=== PATIENT | male | born 1950 | race Caucasian/White ===

== ENCOUNTER → 2021-06-08 | Outpatient (CLI) | payer MEDICARE, BC | LOC: RAD 10:55 | PROVIDERS: ATTEND Family Medicine | DX: I10 Essential (primary) hypertension (principal) | CPT/HCPCS: 93306 ==

== ENCOUNTER 2021-06-23 06:37 | Observation (INO) | payer MEDICARE, BC ==
[2021-06-22 11:05] LABS: BASOPHILS % 0.4 % (0.0-1.0); EOSINOPHILS % 0.6 % (0.0-6.0); HEMATOCRIT 43.8 % (38.2-49.6); HEMOGLOBIN 14.1 g/dL (14.0-18.0); LYMPHOCYTES # (AUTO) 1.4 (1.0-3.2); MEAN CORPUSCULAR HEMOGLOBIN 27.5 pg (28-32); MEAN CORPUSCULAR HGB CONC 32.2 g/dL (31-35); MEAN CORPUSCULAR VOLUME 85.5 fL (81-99); MONOCYTES # (AUTO) 0.6 (0.2-0.8); MONOCYTES % 8.1 % (4.4-11.3); NEUTROPHILS # (AUTO) 4.8 (2.1-6.9); NEUTROPHILS % 70.5 % (38.7-80.0); RED BLOOD COUNT 5.12 x10e6/uL (4.3-5.7); RED CELL DISTRIBUTION WIDTH 14.6 % (11.7-14.4)
[2021-06-22 11:13] LABS: INR 1.09; PROTHROMBIN TIME 15.1 seconds (11.9-14.5)
[2021-06-22 11:14] LABS: PARTIAL THROMBOPLASTIN TIME 31.7 seconds (23.8-35.5)
[2021-06-22 11:17] LABS: ANION GAP 15.1 mmol/L (8-16); CREATININE, SERUM 1.18 mg/dL (0.72-1.25); POTASSIUM 5.1 mmol/L (3.5-5.1)
[2021-06-22 11:29] LABS: PLATELET COUNT 86 x10e3/uL (140-360)
[2021-06-22 11:30] LABS: PLATELET ESTIMATE MODERATELY DECREASED; PLATELET MORPHOLOGY COMMENT NORMAL
[~2021-06-23] VITALS: Ht 190.5 cm; Wt 101.6 kg
[~2021-06-23 06:37] MED LIST: ALTOPREV40 MG PO; ASPIRIN81 MG PO; CRANBERRY200 MG PO; ETODOLAC400 MG PO; FLOMAX0.4 MG PO; GABAPENTIN100 MG PO; JANUMET 50-1,01 EACH PO; MULTI-VITAMIN1 EACH PO; PANTOPRAZOLE SO40 MG PO; SYNTHROID125 MCG PO; TEMAZEPAM15 MG PO; TRAZODONE HCL50 MG PO; ULTRAM 50MG50 MG PO; URSODIOL300 MG PO; VITAMIN B 12 PO; VITAMIN B COMP1 EACH PO; ZESTRIL10 MG PO; [UNRECOGNIZED DRUG - OTHER] PO
[2021-06-23] MEDS ORDERED: Vancomycin IV 1 GM VIAL ONE (06:47)
[2021-06-23] MEDS ORDERED: THROMBIN FOR SOLN 5,000 UNIT VIAL ONE (06:47)
[2021-06-23] MEDS ORDERED: LIDOCAINE 1% W/EPINEPHRINE 20 ML VIAL ONE (06:47)
[2021-06-23 07:25] LABS: BASOPHILS # (AUTO) 0.1 (0.0-0.1); BASOPHILS % 0.8 % (0.0-1.0); EOSINOPHILS # (AUTO) 0.1 (0.0-0.4); HEMATOCRIT 41.5 % (38.2-49.6); HEMOGLOBIN 13.5 g/dL (14.0-18.0); LYMPHOCYTES # (AUTO) 1.8 (1.0-3.2); LYMPHOCYTES % 24.2 % (18.0-39.1); MEAN CORPUSCULAR HEMOGLOBIN 27.7 pg (28-32); MEAN CORPUSCULAR HGB CONC 32.5 g/dL (31-35); MEAN CORPUSCULAR VOLUME 85.2 fL (81-99); MONOCYTES # (AUTO) 0.6 (0.2-0.8); MONOCYTES % 8.6 % (4.4-11.3); NEUTROPHILS # (AUTO) 4.8 (2.1-6.9); PLATELET COUNT 90 x10e3/uL (140-360); RED BLOOD COUNT 4.87 x10e6/uL (4.3-5.7)
[2021-06-23] MEDS ORDERED: SODIUM CHLORIDE 0.9% 250ML 250 ML ONE (07:48)
[2021-06-23] MEDS ORDERED: HYDROCODON-ACE1 EA12 PO (09:57)
[2021-06-23] MEDS ORDERED: ACETAMINOPHEN 325 MG TAB PO PRN (10:00)
[2021-06-23] MEDS ORDERED: MORPHINE SULFATE 5 MG/ML VIAL IM PRN (10:00)
[2021-06-23] MEDS ORDERED: CARISOPRODOL 350 MG TAB PO PRN (10:00)
[2021-06-23] MEDS ORDERED: TRAMADOL HCL 50 MG TAB PO SCH (10:00)
[2021-06-23] MEDS ORDERED: HYDROMORPHONE 2MG/ML 2 MG/ML ML IV PRN (10:00)
[2021-06-23] MEDS ORDERED: PROMETHAZINE HCL (IM) 25 MG/ML VIAL IM PRN (10:00)
[2021-06-23] MEDS ORDERED: MAGNESIUM/ALUMINUM/SIMETHICONE 30 ML UDC PO PRN (10:00)
[2021-06-23] MEDS ORDERED: OXYCODONE/ACETAMINOPHEN 5-325 1 EACH TABLET PO PRN (10:00)
[2021-06-23] MEDS ORDERED: ONDANSETRON HCL INJ 2MG/ML 2ML 2 MG/ML VIAL IV PRN (10:00)
[2021-06-23] MEDS ORDERED: FENTANYL CITRATE/PF 100MCG/2 ML INJ ONE ×2 (10:33→12:48)
[2021-06-23 11:09] VITALS: BP 123/57
[2021-06-23] MEDS: IBUPROFEN 400 MG TAB PO SCH ×2 (11:47→17:33)
[2021-06-23] MEDS: LACTATED RINGER'S 1,000 ML IV SCH ×2 (11:47→18:20)
[2021-06-23 12:00] VITALS: BP 123/57
[2021-06-23] MEDS ORDERED: ONDANSETRON HCL INJ 2MG/ML 2ML 2 MG/ML VIAL ONE (12:20)
[2021-06-23] MEDS ORDERED: SEVOFLURANE INHAL SOLN 250 ML PEN BTL ONE (12:20)
[2021-06-23] MEDS ORDERED: POVIDONE IODINE 0.05% 0.05 % ML PO ONE (12:20)
[2021-06-23] MEDS ORDERED: DEXAMETHASONE SOD PHOS INJ 4 MG/ML SDV ONE (12:20)
[2021-06-23] MEDS ORDERED: LIDOCAINE HCL 2% LOCAL INJ 5 ML SDV VIAL INJ ONE (12:20)
[2021-06-23] MEDS ORDERED: PROPOFOL IV EMULSION 10 MG/ML 20 ML VIAL ONE (12:20)
[2021-06-23] MEDS ORDERED: ROCURONIUM BROMIDE 10 MG/ML 5ML VIAL IV ONE (12:20)
[2021-06-23] MEDS ORDERED: MIDAZOLAM HCL 2 MG/2 ML VIAL ONE (12:48)
[2021-06-23] MEDS: GABAPENTIN 100 MG CAP PO SCH ×2 (15:00→21:57)
[2021-06-23 16:00] VITALS: BP 99/64
[2021-06-23] MEDS ORDERED: URSODIOL 300 MG CAP PO SCH (17:00)
[2021-06-23] MEDS ORDERED: ETODOLAC 400 MG PO SCH (17:00)
[2021-06-23] MEDS ORDERED: NON-FORMULARY MEDICATION (Sitagliptin Phos/Metformin Hcl (Janumet 50-1,000 Mg Tablet) 1 TA PO SCH (17:00)
[2021-06-23] MEDS: Cefazolin 1 GM in SODIUM CHLORIDE 0.9% 50ML 50 ML IV SCH (17:28)
[2021-06-23] MEDS: METFORMIN HCL 500 MG TAB PO SCH (17:30)
[2021-06-23] MEDS: SITAGLIPTIN 100 MG TAB PO SCH (17:33)
[2021-06-23 20:00] VITALS: BP 115/68
[2021-06-23] MEDS ORDERED: CEPACOL SORE THROAT LOZENGES PO PRN (20:00)
[2021-06-23] MEDS ORDERED: TEMAZEPAM 15 MG CAP PO SCH (21:00)
[2021-06-23] MEDS ORDERED: NON-FORMULARY MEDICATION (Lovastatin (Altoprev) 40 MG) PO SCH (21:00)
[2021-06-23] MEDS ORDERED: SIMVASTATIN 20 MG TAB PO SCH (21:00)
[2021-06-23] MEDS ORDERED: TRAZODONE HCL 50 MG TAB PO SCH (21:00)
[2021-06-23] MEDS ORDERED: ZOLPIDEM TARTRATE 5 MG TAB PO PRN (21:00)
[2021-06-23] MEDS: URSODIOL 300 MG CAP PO SCH (21:57)
[2021-06-23] MEDS: CEPACOL SORE THROAT LOZENGES PO PRN (21:57)
[2021-06-24] VITALS: BP 109/59
[2021-06-24] MEDS: Cefazolin 1 GM in SODIUM CHLORIDE 0.9% 50ML 50 ML IV SCH ×2 (01:12→08:56)
[2021-06-24] MEDS: LACTATED RINGER'S 1,000 ML IV SCH (02:40)
[2021-06-24 04:00] VITALS: BP 114/60
[2021-06-24] MEDS: CEPACOL SORE THROAT LOZENGES PO PRN (05:41)
[2021-06-24] MEDS ORDERED: LEVOTHYROXINE SODIUM 125 MCG TAB PO SCH (06:00)
[2021-06-24 07:58] VITALS: BP 118/62
[2021-06-24 08:05] VITALS: BP 112/86
[2021-06-24] MEDS: SITAGLIPTIN 100 MG TAB PO SCH (08:55)
[2021-06-24] MEDS: METFORMIN HCL 500 MG TAB PO SCH (08:55)
[2021-06-24] MEDS: IBUPROFEN 400 MG TAB PO SCH (08:56)
[2021-06-24] MEDS: URSODIOL 300 MG CAP PO SCH (08:56)
[2021-06-24] MEDS: GABAPENTIN 100 MG CAP PO SCH (08:56)
[2021-06-24] MEDS ORDERED: LISINOPRIL 20 MG TAB PO SCH (09:00)
[2021-06-24] MEDS ORDERED: MULTIVITAMINS/MINERALS TAB PO SCH (09:00)
[2021-06-24] MEDS ORDERED: PANTOPRAZOLE SOD 40 MG TABEC PO SCH (09:00)
[2021-06-24] MEDS ORDERED: TAMSULOSIN HCL 0.4 MG CAP PO SCH (09:00)
== END 2021-06-24 10:31 | disposition home or self-care (01) ==
LOC: OR 06:37 → PACU V 10:24 → MED/SURG 10:51
PROVIDERS: ADMIT Neurological Surgery; ATTEND Neurological Surgery
DX: M51.16 Intervertebral disc disorders with radiculopathy, lumbar region (principal); I10 Essential (primary) hypertension; E78.5 Hyperlipidemia, unspecified; E03.9 Hypothyroidism, unspecified; M17.11 Unilateral primary osteoarthritis, right knee; G47.33 Obstructive sleep apnea (adult) (pediatric); Z20.822 Contact with and (suspected) exposure to COVID-19
CPT/HCPCS: 36415 ×3; 63047; 71046; 72020; 80048; 82948 ×2; 85025 ×2; 85610; 85730; 86850; 86900; 88304; 88311; 93005; 97161; 97530; G0378 ×2; J0690 ×2; J1100; J2001; J2250; J2405; J2704; J3010; J3370; J7050; J7121; P9034; S0164; U0002

== ENCOUNTER → 2021-09-26 | Day surgery (SDC) | payer MEDICARE, BC ==
[2021-09-21 13:25] LABS: BASOPHILS % 0.7 % (0.0-1.0); EOSINOPHILS % 1.4 % (0.0-6.0); HEMATOCRIT 37.1 % (38.2-49.6); HEMOGLOBIN 11.4 g/dL (14.0-18.0); LYMPHOCYTES # (AUTO) 0.8 (1.0-3.2); LYMPHOCYTES % 28.3 % (18.0-39.1); MEAN CORPUSCULAR HEMOGLOBIN 27.3 pg (28-32); MEAN CORPUSCULAR HGB CONC 30.7 g/dL (31-35); MEAN CORPUSCULAR VOLUME 88.8 fL (81-99); MONOCYTES # (AUTO) 0.3 (0.2-0.8); MONOCYTES % 9.8 % (4.4-11.3); NEUTROPHILS # (AUTO) 1.7 (2.1-6.9); NEUTROPHILS % 59.5 % (38.7-80.0); PLATELET COUNT 60 x10e3/uL (140-360); RED BLOOD COUNT 4.18 x10e6/uL (4.3-5.7); RED CELL DISTRIBUTION WIDTH 15.2 % (11.7-14.4)
[2021-09-21 13:41] LABS: INR 1.05; PROTHROMBIN TIME 14.7 seconds (11.9-14.5)
[2021-09-21 13:42] LABS: PARTIAL THROMBOPLASTIN TIME 32.9 seconds (23.8-35.5)
[2021-09-21 13:51] LABS: ALBUMIN 3.2 g/dL (3.5-5.0); ALBUMIN/GLOBULIN RATIO 0.9 (0.8-2.0); ANION GAP 14.5 mmol/L (8-16); CALCIUM 8.4 mg/dL (8.4-10.2); CHOL/HDL RATIO 3.5 (3.9-4.7); CREATININE, SERUM 0.98 mg/dL (0.72-1.25); POTASSIUM 4.5 mmol/L (3.5-5.1)
[~2021-09-26] VITALS: Ht 190.5 cm; Wt 106.6 kg
[2021-09-26] VITALS (17 sets, daily range): BP systolic 117–152; BP diastolic 66–77
[~2021-09-26] MED LIST changes: +ASPIRIN 81 MG CHEW TAB ONE; +ASPIRIN CHEW81 MG PO; +FENTANYL CITRATE/PF 100MCG/2 ML INJ ONE; +HEPARIN SOD (PORCINE) 1000 UNIT/ML 30ML ONE; +HEPARIN SOD/SOD CHLORIDE 2,000 ML ONE; +HYDROCODON-ACE1 EA12 PO; +IOPAMIDOL 370 MG/ML 100 ML INFUS..BTL INJ ONE; +LIDOCAINE HCL 1% LOCAL INJ 20 ML VIAL ONE; +MIDAZOLAM HCL 2 MG/2 ML VIAL ONE; +NITROGLYCERIN/D5W 200 MCG/ML 250 ML ONE; +SODIUM CHLORIDE 0.9% 1000ML 1,000 ML ONE
== END | disposition home or self-care (01) ==
LOC: CATH LAB 08:30
PROVIDERS: ATTEND Internal Medicine Cardiovascular Disease
DX: I25.118 Atherosclerotic heart disease of native coronary artery with other forms of angina pectoris (principal); R94.39 Abnormal result of other cardiovascular function study; E78.5 Hyperlipidemia, unspecified; I35.0 Nonrheumatic aortic (valve) stenosis; I11.0 Hypertensive heart disease with heart failure; I50.30 Unspecified diastolic (congestive) heart failure; E08.59 Diabetes mellitus due to underlying condition with other circulatory complications; E03.9 Hypothyroidism, unspecified; N40.0 Benign prostatic hyperplasia without lower urinary tract symptoms; Z71.89 Other specified counseling; Z01.812 Encounter for preprocedural laboratory examination; Z20.822 Contact with and (suspected) exposure to COVID-19; Z79.82 Long term (current) use of aspirin; Z79.84 Long term (current) use of oral hypoglycemic drugs; Z79.899 Other long term (current) drug therapy; Z68.33 Body mass index [BMI] 33.0-33.9, adult; Z82.49 Family history of ischemic heart disease and other diseases of the circulatory system
CPT/HCPCS: 36415; 76937; 80053; 80061; 85025; 85610; 85730; 93458; C1760; C1769 ×2; C1887 ×2; J1644; J2001; J2250; J3010; J7030; Q9967; U0002; 99152; 99153

== ENCOUNTER → 2023-03-21 | Day surgery (SDC) | payer MEDICARE, BC ==
[2023-03-02 12:29] LABS: BASOPHILS % 0.5 % (0.0-1.0); EOSINOPHILS % 1.5 % (0.0-6.0); HEMATOCRIT 29.6 % (38.2-49.6); HEMOGLOBIN 9.2 g/dL (14.0-18.0); LYMPHOCYTES # (AUTO) 0.4 (1.0-3.2); LYMPHOCYTES % 21.6 % (18.0-39.1); MEAN CORPUSCULAR HEMOGLOBIN 24.7 pg (28-32); MEAN CORPUSCULAR HGB CONC 31.1 g/dL (31-35); MEAN CORPUSCULAR VOLUME 79.6 fL (81-99); MONOCYTES # (AUTO) 0.2 (0.2-0.8); MONOCYTES % 9.3 % (4.4-11.3); NEUTROPHILS # (AUTO) 1.4 (2.1-6.9); NEUTROPHILS % 67.1 % (38.7-80.0); PLATELET COUNT 62 x10e3/uL (140-360); RED BLOOD COUNT 3.72 x10e6/uL (4.3-5.7); RED CELL DISTRIBUTION WIDTH 17.1 % (11.7-14.4); WHITE BLOOD COUNT 2.04 x10e3/uL (4.8-10.8)
[~2023-03-21] MED LIST changes: +ALFUZOSIN HCL10 MG; -ASPIRIN 81 MG CHEW TAB ONE; +CLARITHROMYCIN500 MG PO; +DITROPAN XL5 MG PO; -FENTANYL CITRATE/PF 100MCG/2 ML INJ ONE; -HEPARIN SOD (PORCINE) 1000 UNIT/ML 30ML ONE; -HEPARIN SOD/SOD CHLORIDE 2,000 ML ONE; -IOPAMIDOL 370 MG/ML 100 ML INFUS..BTL INJ ONE; +IPRATROPIUM BROMIDE 0.02% 2.5 ML NEB ONE; +LACTATED RINGER'S 1,000 ML ONE; -LIDOCAINE HCL 1% LOCAL INJ 20 ML VIAL ONE; +LIDOCAINE HCL 2% LOCAL INJ 5 ML SDV VIAL INJ ONE; +METOCLOPRAMIDE HCL 10 MG/2ML VIAL ONE; +METOPROLOL TARTRATE INJ 1 MG/ML VIAL ONE; -MIDAZOLAM HCL 2 MG/2 ML VIAL ONE; -NITROGLYCERIN/D5W 200 MCG/ML 250 ML ONE; +PHENYLEPHRINE HCL 1% 10 MG/ML VIAL ONE; +PROPOFOL IV EMULSION 10 MG/ML 50 ML VIAL IV ONE; +SODIUM CHLORIDE 0.9% 100 ML ONE; -SODIUM CHLORIDE 0.9% 1000ML 1,000 ML ONE
[2023-03-21 08:58] LABS: BASOPHILS % 0.6 % (0.0-1.0); EOSINOPHILS # (AUTO) 0.1 (0.0-0.4); EOSINOPHILS % 1.2 % (0.0-6.0); HEMATOCRIT 34.3 % (38.2-49.6); HEMOGLOBIN 10.6 g/dL (14.0-18.0); LYMPHOCYTES # (AUTO) 0.8 (1.0-3.2); MEAN CORPUSCULAR HEMOGLOBIN 24.4 pg (28-32); MEAN CORPUSCULAR HGB CONC 30.9 g/dL (31-35); MONOCYTES # (AUTO) 0.4 (0.2-0.8); MONOCYTES % 7.7 % (4.4-11.3); NEUTROPHILS # (AUTO) 3.9 (2.1-6.9); NEUTROPHILS % 75.3 % (38.7-80.0); PLATELET COUNT 101 x10e3/uL (140-360); RED BLOOD COUNT 4.34 x10e6/uL (4.3-5.7); RED CELL DISTRIBUTION WIDTH 16.2 % (11.7-14.4)
[2023-03-21 09:33] LABS: ALBUMIN 3.4 g/dL (3.5-5.0); ALBUMIN/GLOBULIN RATIO 0.8 (0.8-2.0); ANION GAP 17.7 mmol/L (8-16); BILIRUBIN,TOTAL 1.5 mg/dL (0.2-1.2); CALCIUM 9.9 mg/dL (8.4-10.2); CREATININE, SERUM 1.08 mg/dL (0.72-1.25); POTASSIUM 3.7 mmol/L (3.5-5.1); TOTAL PROTEIN 7.6 g/dL (6.5-8.1)
[2023-03-21 09:38] VITALS: PULSE 74; RESP 18; O2SAT 95
[2023-03-21 10:15] LABS: INR 1.25
[2023-03-21 10:16] LABS: PARTIAL THROMBOPLASTIN TIME 42.1 seconds (23.8-35.5)
[2023-03-21 12:50] VITALS: BP 125/78; PULSE 87; RESP 15; O2SAT 100
== END | disposition home or self-care (01) ==
LOC: OR 08:11
PROVIDERS: ATTEND Internal Medicine Gastroenterology
DX: R19.5 Other fecal abnormalities (principal); D12.2 Benign neoplasm of ascending colon; K29.50 Unspecified chronic gastritis without bleeding; K74.60 Unspecified cirrhosis of liver; I85.10 Secondary esophageal varices without bleeding; K76.6 Portal hypertension; K31.89 Other diseases of stomach and duodenum; K57.30 Diverticulosis of large intestine without perforation or abscess without bleeding; K64.8 Other hemorrhoids; I86.8 Varicose veins of other specified sites; Z71.3 Dietary counseling and surveillance; D69.6 Thrombocytopenia, unspecified; I10 Essential (primary) hypertension; E11.9 Type 2 diabetes mellitus without complications; E03.9 Hypothyroidism, unspecified; N40.0 Benign prostatic hyperplasia without lower urinary tract symptoms; E78.00 Pure hypercholesterolemia, unspecified; Z01.810 Encounter for preprocedural cardiovascular examination; Z01.812 Encounter for preprocedural laboratory examination; Z79.84 Long term (current) use of oral hypoglycemic drugs; Z79.899 Other long term (current) drug therapy; Z68.30 Body mass index [BMI] 30.0-30.9, adult; Z98.61 Coronary angioplasty status
CPT/HCPCS: 36415 ×2; 43239; 45385; 80053; 82948; 85025 ×2; 85610; 85730; 88305; 88342; 93005; 94799; C9113; J0690; J2001; J2371; J2704; J2765; J7050; J7121; 45378

== ENCOUNTER → 2023-05-25 | Outpatient (REF) | payer MEDICARE, BC ==
[~2023-05-25] MED LIST changes: +ALBUMIN 25% 12.5GM 50ML 200 ML IV ONE; -IPRATROPIUM BROMIDE 0.02% 2.5 ML NEB ONE; -LACTATED RINGER'S 1,000 ML ONE; -LIDOCAINE HCL 2% LOCAL INJ 5 ML SDV VIAL INJ ONE; -METOCLOPRAMIDE HCL 10 MG/2ML VIAL ONE; -METOPROLOL TARTRATE INJ 1 MG/ML VIAL ONE; -PHENYLEPHRINE HCL 1% 10 MG/ML VIAL ONE; -PROPOFOL IV EMULSION 10 MG/ML 50 ML VIAL IV ONE; -SODIUM CHLORIDE 0.9% 100 ML ONE
[2023-05-25 12:34] LABS: BASOPHILS % 0.8 % (0.0-1.0); EOSINOPHILS % 1.1 % (0.0-6.0); HEMATOCRIT 31.8 % (38.2-49.6); HEMOGLOBIN 9.3 g/dL (14.0-18.0); LYMPHOCYTES # (AUTO) 0.6 (1.0-3.2); LYMPHOCYTES % 14.6 % (18.0-39.1); MEAN CORPUSCULAR HEMOGLOBIN 23.5 pg (28-32); MEAN CORPUSCULAR HGB CONC 29.2 g/dL (31-35); MEAN CORPUSCULAR VOLUME 80.5 fL (81-99); MONOCYTES # (AUTO) 0.3 (0.2-0.8); MONOCYTES % 8.5 % (4.4-11.3); NEUTROPHILS # (AUTO) 2.8 (2.1-6.9); NEUTROPHILS % 74.7 % (38.7-80.0); PLATELET COUNT 94 x10e3/uL (140-360); RED BLOOD COUNT 3.95 x10e6/uL (4.3-5.7); RED CELL DISTRIBUTION WIDTH 17.2 % (11.7-14.4); WHITE BLOOD COUNT 3.77 x10e3/uL (4.8-10.8)
[2023-05-25 12:45] LABS: INR 1.22; PROTHROMBIN TIME 15.7 seconds (11.9-14.5)
[2023-05-25 12:46] LABS: PARTIAL THROMBOPLASTIN TIME 40.6 seconds (23.8-35.5)
[2023-05-25 15:11] LABS: BODY FLUID APPEARANCE SL.CLOUDY; BODY FLUID COLOR YELLOW; BODY FLUID TYPE PERITONEAL
[2023-05-25 15:33] LABS: RBC,BODY FLUID 1000 cells/uL; WBC,BODY FLUID 712 cells/uL
[2023-05-25 16:28] LABS: LYMPHOCYTES,BODY FLUID 6 %; MONO/MACROPHG,BODY FLUID 65 %; NEUTROPHILS,BODY FLUID 29 %; TOTAL CELLS COUNTED (DIFF) 100
== END ==
LOC: US 11:37
PROVIDERS: ATTEND Nurse Practitioner
DX: R18.8 Other ascites (principal); K74.60 Unspecified cirrhosis of liver
CPT/HCPCS: 36415; 49083; 82040; 84157; 85025; 85610; 85730; 87070; 87205; 88112; 88305; 89051

== ENCOUNTER → 2023-09-06 | Outpatient (REF) | payer MEDICARE, BC ==
[~2023-09-06] MED LIST changes: -ALBUMIN 25% 12.5GM 50ML 200 ML IV ONE; +ALBUMIN 25% 12.5GM 50ML 300 ML IV ONE; +FUROSEMIDE40 MG PO; +SPIRONOLACTONE25 MG PO
== END ==
LOC: US 12:11
PROVIDERS: ATTEND Nurse Practitioner
DX: R18.8 Other ascites (principal); K74.60 Unspecified cirrhosis of liver
CPT/HCPCS: 49083

== ENCOUNTER → 2023-10-23 | Outpatient (REF) | payer MEDICARE, BC ==
[~2023-10-23] MED LIST changes: +ALBUMIN 25% 12.5GM 50ML 200 ML IV ONE; -ALBUMIN 25% 12.5GM 50ML 300 ML IV ONE
== END ==
LOC: US 12:10
PROVIDERS: ATTEND Nurse Practitioner
DX: K74.60 Unspecified cirrhosis of liver (principal); R18.8 Other ascites
CPT/HCPCS: 49083; C1729

== ENCOUNTER → 2023-11-13 | Outpatient (REF) | payer MEDICARE, BC ==
[~2023-11-13] MED LIST changes: -ALBUMIN 25% 12.5GM 50ML 200 ML IV ONE; +ALBUMIN 25% 12.5GM 50ML 300 ML IV ONE
== END ==
LOC: US 13:09
PROVIDERS: ATTEND Nurse Practitioner
DX: R18.8 Other ascites (principal); K74.60 Unspecified cirrhosis of liver
CPT/HCPCS: 49083; C1729

== ENCOUNTER → 2023-11-22 | Outpatient (REF) | payer MEDICARE, BC ==
[~2023-11-22] MED LIST changes: +ALBUMIN 25% 12.5GM 50ML 200 ML IV ONE; -ALBUMIN 25% 12.5GM 50ML 300 ML IV ONE
== END ==
LOC: US 12:08
PROVIDERS: ATTEND Nurse Practitioner
DX: R18.8 Other ascites (principal); K74.60 Unspecified cirrhosis of liver
CPT/HCPCS: 49083; C1729

== ENCOUNTER → 2023-12-04 | Outpatient (REF) | payer MEDICARE, BC | LOC: US 08:25 | PROVIDERS: ATTEND Nurse Practitioner | DX: R18.8 Other ascites (principal); K74.60 Unspecified cirrhosis of liver | CPT/HCPCS: 49083; C1729 ==

== ENCOUNTER → 2023-12-11 | Outpatient (REF) | payer MEDICARE, BC ==
[~2023-12-11] MED LIST changes: +ALBUMIN 25% 12.5GM 50ML 150 ML IV ONE; -ALBUMIN 25% 12.5GM 50ML 200 ML IV ONE
[2023-12-11 13:45] LABS: BASOPHILS # (AUTO) 0.1 (0.0-0.1); BASOPHILS % 0.9 % (0.0-1.0); EOSINOPHILS % 0.6 % (0.0-6.0); LYMPHOCYTES # (AUTO) 1.5 (1.0-3.2); LYMPHOCYTES % 23.7 % (18.0-39.1); MEAN CORPUSCULAR HEMOGLOBIN 27.6 pg (28-32); MEAN CORPUSCULAR HGB CONC 31.6 g/dL (31-35); MEAN CORPUSCULAR VOLUME 87.4 fL (81-99); MONOCYTES # (AUTO) 0.6 (0.2-0.8); MONOCYTES % 9.4 % (4.4-11.3); NEUTROPHILS # (AUTO) 4.1 (2.1-6.9); NEUTROPHILS % 63.7 % (38.7-80.0); PLATELET COUNT 175 x10e3/uL (140-360); RED BLOOD COUNT 4.35 x10e6/uL (4.3-5.7); RED CELL DISTRIBUTION WIDTH 17.1 % (11.7-14.4); WHITE BLOOD COUNT 6.41 x10e3/uL (4.8-10.8)
[2023-12-11 14:01] LABS: INR 0.98; PROTHROMBIN TIME 13.5 seconds (11.9-14.5)
[2023-12-11 14:02] LABS: PARTIAL THROMBOPLASTIN TIME 33.6 seconds (23.8-35.5)
[2023-12-11 19:29] LABS: BASOPHILS % (MANUAL) 1 % (0-1.5); HYPOCHROMASIA SLIGHT; LYMPHOCYTES % (MANUAL) 17 % (19-48); MONOCYTES % (MANUAL) 5 % (3.4-9.0); NEUTROPHILS % (MANUAL) 76 % (40-74); PLATELET ESTIMATE ADEQUATE; PLATELET MORPHOLOGY COMMENT NORMAL; RBC MORPHOLOGY COMMENT NORMAL; REACTIVE LYMPHOCYTES 1
== END ==
LOC: US 13:10
PROVIDERS: ATTEND Nurse Practitioner
DX: R18.8 Other ascites (principal); K74.60 Unspecified cirrhosis of liver
CPT/HCPCS: 36415; 49083; 85025; 85610; 85730; C1729

== ENCOUNTER → 2023-12-18 | Outpatient (REF) | payer MEDICARE, BC ==
[~2023-12-18] MED LIST changes: -ALBUMIN 25% 12.5GM 50ML 150 ML IV ONE; +ALBUMIN 25% 12.5GM 50ML 200 ML IV ONE; +LIDOCAINE HCL 1% LOCAL INJ 20 ML VIAL ONE
== END ==
LOC: US 11:07
PROVIDERS: ATTEND Nurse Practitioner
DX: R18.8 Other ascites (principal); K74.60 Unspecified cirrhosis of liver
CPT/HCPCS: 49083; J2001

== ENCOUNTER → 2023-12-25 | Outpatient (REF) | payer MEDICARE, BC ==
[~2023-12-25] MED LIST changes: -LIDOCAINE HCL 1% LOCAL INJ 20 ML VIAL ONE
== END ==
LOC: US 13:12
PROVIDERS: ATTEND Nurse Practitioner
DX: R18.8 Other ascites (principal); K74.60 Unspecified cirrhosis of liver
CPT/HCPCS: 49083

== ENCOUNTER → 2024-01-01 | Outpatient (REF) | payer MEDICARE, BC ==
[~2024-01-01] MED LIST changes: +ALBUMIN 25% 12.5GM 50ML 150 ML IV ONE; -ALBUMIN 25% 12.5GM 50ML 200 ML IV ONE
== END ==
LOC: US 12:08
PROVIDERS: ATTEND Nurse Practitioner
DX: R18.8 Other ascites (principal); K74.60 Unspecified cirrhosis of liver
CPT/HCPCS: 49083

== ENCOUNTER → 2024-01-08 | Outpatient (REF) | payer MEDICARE, BC ==
[~2024-01-08] MED LIST changes: -ALBUMIN 25% 12.5GM 50ML 150 ML IV ONE; +ALBUMIN 25% 12.5GM 50ML 200 ML IV ONE
== END ==
LOC: US 12:11
PROVIDERS: ATTEND Nurse Practitioner
DX: R18.8 Other ascites (principal); K74.60 Unspecified cirrhosis of liver
CPT/HCPCS: 49083; C1729

== ENCOUNTER → 2024-01-15 | Outpatient (REF) | payer MEDICARE, BC ==
[~2024-01-15] MED LIST changes: +ALBUMIN 25% 12.5GM 50ML 150 ML IV ONE; -ALBUMIN 25% 12.5GM 50ML 200 ML IV ONE
[2024-01-15 13:13] LABS: BASOPHILS # (AUTO) 0.1 (0.0-0.1); BASOPHILS % 1.2 % (0.0-1.0); EOSINOPHILS % 0.7 % (0.0-6.0); HEMATOCRIT 38.2 % (38.2-49.6); HEMOGLOBIN 11.8 g/dL (14.0-18.0); LYMPHOCYTES # (AUTO) 0.6 (1.0-3.2); LYMPHOCYTES % 12.9 % (18.0-39.1); MEAN CORPUSCULAR HEMOGLOBIN 28.4 pg (28-32); MEAN CORPUSCULAR HGB CONC 30.9 g/dL (31-35); MONOCYTES # (AUTO) 0.4 (0.2-0.8); MONOCYTES % 8.2 % (4.4-11.3); NEUTROPHILS # (AUTO) 3.3 (2.1-6.9); NEUTROPHILS % 76.5 % (38.7-80.0); PLATELET COUNT 153 x10e3/uL (140-360); RED BLOOD COUNT 4.15 x10e6/uL (4.3-5.7); RED CELL DISTRIBUTION WIDTH 16.7 % (11.7-14.4); WHITE BLOOD COUNT 4.25 x10e3/uL (4.8-10.8)
[2024-01-15 13:28] LABS: INR 1.17; PROTHROMBIN TIME 15.5 seconds (11.9-14.5)
[2024-01-15 13:29] LABS: PARTIAL THROMBOPLASTIN TIME 39.4 seconds (23.8-35.5)
== END ==
LOC: US 12:21
PROVIDERS: ATTEND Nurse Practitioner
DX: R18.8 Other ascites (principal); K74.60 Unspecified cirrhosis of liver
CPT/HCPCS: 36415; 49083; 85025; 85610; 85730; C1729

== ENCOUNTER → 2024-01-22 | Outpatient (REF) | payer MEDICARE, BC | LOC: US 14:17 | PROVIDERS: ATTEND Nurse Practitioner | DX: R18.8 Other ascites (principal); K74.60 Unspecified cirrhosis of liver | CPT/HCPCS: 49083 ==

== ENCOUNTER → 2024-01-29 | Outpatient (REF) | payer MEDICARE, BC | LOC: US 12:16 | PROVIDERS: ATTEND Nurse Practitioner | DX: R18.8 Other ascites (principal); K74.60 Unspecified cirrhosis of liver | CPT/HCPCS: 49083 ==

== ENCOUNTER → 2024-02-05 | Outpatient (REF) | payer MEDICARE, BC ==
[~2024-02-05] MED LIST changes: +ALBUMIN 25% 12.5GM 50ML 100 ML IV ONE; -ALBUMIN 25% 12.5GM 50ML 150 ML IV ONE
== END ==
LOC: US 12:25
PROVIDERS: ATTEND Nurse Practitioner
DX: R18.8 Other ascites (principal); K74.60 Unspecified cirrhosis of liver
CPT/HCPCS: 49083

== ENCOUNTER → 2024-02-12 | Outpatient (REF) | payer MEDICARE, BC ==
[~2024-02-12] MED LIST changes: -ALBUMIN 25% 12.5GM 50ML 100 ML IV ONE; +ALBUMIN 25% 12.5GM 50ML 150 ML IV ONE
== END ==
LOC: US 12:36
PROVIDERS: ATTEND Nurse Practitioner
DX: R18.8 Other ascites (principal); K74.60 Unspecified cirrhosis of liver
CPT/HCPCS: 49083; C1729

== ENCOUNTER → 2024-02-19 | Outpatient (REF) | payer MEDICARE, BC ==
[~2024-02-19] MED LIST changes: -ALBUMIN 25% 12.5GM 50ML 150 ML IV ONE; +ALBUMIN 25% 12.5GM 50ML 200 ML IV ONE; +LIDOCAINE HCL 1% LOCAL INJ 20 ML VIAL ONE
[2024-02-19 13:14] LABS: HEMATOCRIT 41.2 % (38.2-49.6); HEMOGLOBIN 12.6 g/dL (14.0-18.0); LYMPHOCYTES # (AUTO) 0.7 (1.0-3.2); LYMPHOCYTES % 15.8 % (18.0-39.1); MEAN CORPUSCULAR HEMOGLOBIN 28.6 pg (28-32); MEAN CORPUSCULAR HGB CONC 30.6 g/dL (31-35); MEAN CORPUSCULAR VOLUME 93.6 fL (81-99); MONOCYTES # (AUTO) 0.4 (0.2-0.8); MONOCYTES % 8.9 % (4.4-11.3); NEUTROPHILS # (AUTO) 3.1 (2.1-6.9); NEUTROPHILS % 73.1 % (38.7-80.0); PLATELET COUNT 140 x10e3/uL (140-360); RED CELL DISTRIBUTION WIDTH 15.9 % (11.7-14.4); WHITE BLOOD COUNT 4.18 x10e3/uL (4.8-10.8)
[2024-02-19 13:23] LABS: INR 0.97; PROTHROMBIN TIME 13.4 seconds (11.9-14.5)
[2024-02-19 13:24] LABS: PARTIAL THROMBOPLASTIN TIME 39.8 seconds (23.8-35.5)
== END ==
LOC: US 12:42
PROVIDERS: ATTEND Nurse Practitioner
DX: R18.8 Other ascites (principal); K74.60 Unspecified cirrhosis of liver
CPT/HCPCS: 36415; 49083; 85025; 85610; 85730; J2003

== ENCOUNTER → 2024-02-26 | Outpatient (REF) | payer MEDICARE, BC ==
[~2024-02-26] MED LIST changes: +ALBUMIN 25% 12.5GM 50ML 150 ML IV ONE; -ALBUMIN 25% 12.5GM 50ML 200 ML IV ONE; -LIDOCAINE HCL 1% LOCAL INJ 20 ML VIAL ONE
== END ==
LOC: US 12:33
PROVIDERS: ATTEND Nurse Practitioner
DX: R18.8 Other ascites (principal); K74.60 Unspecified cirrhosis of liver
CPT/HCPCS: 49083

== ENCOUNTER → 2024-03-04 | Outpatient (REF) | payer MEDICARE, BC ==
[~2024-03-04] MED LIST changes: +ALBUMIN 25% 12.5GM 50ML 100 ML IV ONE; -ALBUMIN 25% 12.5GM 50ML 150 ML IV ONE
== END ==
LOC: US 14:06
PROVIDERS: ATTEND Nurse Practitioner
DX: R18.8 Other ascites (principal); K74.60 Unspecified cirrhosis of liver
CPT/HCPCS: 49083

== ENCOUNTER → 2024-03-11 | Outpatient (REF) | payer MEDICARE, BC | LOC: US 10:56 | PROVIDERS: ATTEND Nurse Practitioner | DX: R18.8 Other ascites (principal); K74.60 Unspecified cirrhosis of liver | CPT/HCPCS: 49083 ==

== ENCOUNTER → 2024-03-18 | Outpatient (REF) | payer MEDICARE, BC | LOC: US 12:20 | PROVIDERS: ATTEND Nurse Practitioner | DX: R18.8 Other ascites (principal); K74.60 Unspecified cirrhosis of liver | CPT/HCPCS: 49083; C1729 ==

== ENCOUNTER → 2024-03-25 | Outpatient (REF) | payer MEDICARE, BC ==
[~2024-03-25] MED LIST changes: +ALBUMIN 25% 12.5GM 50ML 50 ML IV ONE
[2024-03-25 12:44] LABS: BASOPHILS # (AUTO) 0.1 (0.0-0.1); BASOPHILS % 1.6 % (0.0-1.0); EOSINOPHILS # (AUTO) 0.1 (0.0-0.4); EOSINOPHILS % 1.1 % (0.0-6.0); HEMATOCRIT 39.6 % (38.2-49.6); HEMOGLOBIN 12.3 g/dL (14.0-18.0); LYMPHOCYTES # (AUTO) 0.7 (1.0-3.2); LYMPHOCYTES % 14.5 % (18.0-39.1); MEAN CORPUSCULAR HEMOGLOBIN 28.9 pg (28-32); MEAN CORPUSCULAR HGB CONC 31.1 g/dL (31-35); MONOCYTES # (AUTO) 0.4 (0.2-0.8); MONOCYTES % 8.9 % (4.4-11.3); NEUTROPHILS # (AUTO) 3.3 (2.1-6.9); NEUTROPHILS % 73.5 % (38.7-80.0); PLATELET COUNT 147 x10e3/uL (140-360); RED BLOOD COUNT 4.26 x10e6/uL (4.3-5.7); RED CELL DISTRIBUTION WIDTH 15.8 % (11.7-14.4); WHITE BLOOD COUNT 4.49 x10e3/uL (4.8-10.8)
[2024-03-25 12:53] LABS: INR 0.96; PROTHROMBIN TIME 13.4 seconds (11.9-14.5)
[2024-03-25 12:54] LABS: PARTIAL THROMBOPLASTIN TIME 34.4 seconds (23.8-35.5)
== END ==
LOC: US 12:17
PROVIDERS: ATTEND Nurse Practitioner
DX: R18.8 Other ascites (principal); K74.60 Unspecified cirrhosis of liver
CPT/HCPCS: 36415; 49083; 85025; 85610; 85730

== ENCOUNTER → 2024-04-01 | Outpatient (REF) | payer MEDICARE, BC | LOC: US 11:15 | PROVIDERS: ATTEND Nurse Practitioner | DX: R18.8 Other ascites (principal); K74.60 Unspecified cirrhosis of liver | CPT/HCPCS: 49083; C1729 ==

== ENCOUNTER → 2024-04-08 | Outpatient (REF) | payer MEDICARE, BC ==
[~2024-04-08] MED LIST changes: -ALBUMIN 25% 12.5GM 50ML 100 ML IV ONE; +ALBUMIN 25% 12.5GM 50ML 150 ML IV ONE; -ALBUMIN 25% 12.5GM 50ML 50 ML IV ONE
== END ==
LOC: US 11:26
PROVIDERS: ATTEND Nurse Practitioner
DX: R18.8 Other ascites (principal); K74.60 Unspecified cirrhosis of liver
CPT/HCPCS: 49083; C1729

== ENCOUNTER → 2024-04-22 | Outpatient (REF) | payer MEDICARE, BC ==
[~2024-04-22] MED LIST changes: +ALBUMIN 25% 12.5GM 50ML 100 ML IV ONE; -ALBUMIN 25% 12.5GM 50ML 150 ML IV ONE
== END ==
LOC: US 11:16
PROVIDERS: ATTEND Nurse Practitioner
DX: R18.8 Other ascites (principal)
CPT/HCPCS: 49083

== ENCOUNTER → 2024-04-29 | Outpatient (REF) | payer MEDICARE, BC ==
[~2024-04-29] MED LIST changes: -ALBUMIN 25% 12.5GM 50ML 100 ML IV ONE; +ALBUMIN 25% 12.5GM 50ML 200 ML IV ONE
[2024-04-29 13:38] LABS: HEMATOCRIT 37.7 % (38.2-49.6); HEMOGLOBIN 11.5 g/dL (14.0-18.0); LYMPHOCYTES # (AUTO) 0.7 (1.0-3.2); LYMPHOCYTES % 17.4 % (18.0-39.1); MEAN CORPUSCULAR HEMOGLOBIN 29.2 pg (28-32); MEAN CORPUSCULAR HGB CONC 30.5 g/dL (31-35); MEAN CORPUSCULAR VOLUME 95.7 fL (81-99); MONOCYTES # (AUTO) 0.4 (0.2-0.8); MONOCYTES % 9.8 % (4.4-11.3); NEUTROPHILS % 70.6 % (38.7-80.0); PLATELET COUNT 146 x10e3/uL (140-360); RED BLOOD COUNT 3.94 x10e6/uL (4.3-5.7); RED CELL DISTRIBUTION WIDTH 15.2 % (11.7-14.4)
[2024-04-29 13:50] LABS: INR 0.95; PROTHROMBIN TIME 13.3 seconds (11.9-14.5)
[2024-04-29 13:51] LABS: PARTIAL THROMBOPLASTIN TIME 39.2 seconds (23.8-35.5)
== END ==
LOC: US 13:04
PROVIDERS: ATTEND Nurse Practitioner
DX: R18.8 Other ascites (principal); K74.60 Unspecified cirrhosis of liver
CPT/HCPCS: 36415; 49083; 85025; 85610; 85730

== ENCOUNTER → 2024-05-06 | Outpatient (REF) | payer MEDICARE, BC ==
[~2024-05-06] MED LIST changes: +ALBUMIN 25% 12.5GM 50ML 100 ML IV ONE; -ALBUMIN 25% 12.5GM 50ML 200 ML IV ONE
== END ==
LOC: US 12:09
PROVIDERS: ATTEND Nurse Practitioner
DX: R18.8 Other ascites (principal); K74.60 Unspecified cirrhosis of liver
CPT/HCPCS: 49083

== ENCOUNTER → 2024-05-15 | Outpatient (REF) | payer MEDICARE, BC ==
[~2024-05-15] MED LIST changes: -ALBUMIN 25% 12.5GM 50ML 100 ML IV ONE; +ALBUMIN 25% 12.5GM 50ML 150 ML IV ONE
== END ==
LOC: US 11:13
PROVIDERS: ATTEND Nurse Practitioner
DX: R18.8 Other ascites (principal); K74.60 Unspecified cirrhosis of liver
CPT/HCPCS: 49083

== ENCOUNTER → 2024-05-20 | Outpatient (REF) | payer MEDICARE, BC ==
[~2024-05-20] MED LIST changes: +ALBUMIN 25% 12.5GM 50ML 0 ML IV ONE; -ALBUMIN 25% 12.5GM 50ML 150 ML IV ONE
== END ==
LOC: US 12:06
PROVIDERS: ATTEND Nurse Practitioner
DX: R18.8 Other ascites (principal); K74.60 Unspecified cirrhosis of liver
CPT/HCPCS: 49083

== ENCOUNTER → 2024-05-27 | Outpatient (REF) | payer MEDICARE, BC ==
[~2024-05-27] MED LIST changes: -ALBUMIN 25% 12.5GM 50ML 0 ML IV ONE; +ALBUMIN 25% 12.5GM 50ML 150 ML IV ONE
[2024-05-27 13:01] LABS: BASOPHILS % 1.1 % (0.0-1.0); EOSINOPHILS # (AUTO) 0.1 (0.0-0.4); EOSINOPHILS % 1.9 % (0.0-6.0); HEMATOCRIT 36.8 % (38.2-49.6); HEMOGLOBIN 11.9 g/dL (14.0-18.0); LYMPHOCYTES # (AUTO) 0.6 (1.0-3.2); LYMPHOCYTES % 16.2 % (18.0-39.1); MEAN CORPUSCULAR HEMOGLOBIN 29.3 pg (28-32); MEAN CORPUSCULAR HGB CONC 32.3 g/dL (31-35); MEAN CORPUSCULAR VOLUME 90.6 fL (81-99); MONOCYTES # (AUTO) 0.4 (0.2-0.8); MONOCYTES % 9.6 % (4.4-11.3); NEUTROPHILS # (AUTO) 2.6 (2.1-6.9); NEUTROPHILS % 70.9 % (38.7-80.0); PLATELET COUNT 146 x10e3/uL (140-360); RED BLOOD COUNT 4.06 x10e6/uL (4.3-5.7); RED CELL DISTRIBUTION WIDTH 15.9 % (11.7-14.4); WHITE BLOOD COUNT 3.64 x10e3/uL (4.8-10.8)
[2024-05-27 13:23] LABS: INR 0.97; PROTHROMBIN TIME 13.5 seconds (11.9-14.5)
[2024-05-27 13:24] LABS: PARTIAL THROMBOPLASTIN TIME 37.6 seconds (23.8-35.5)
== END ==
LOC: US 12:17
PROVIDERS: ATTEND Nurse Practitioner
DX: R18.8 Other ascites (principal); K74.60 Unspecified cirrhosis of liver
CPT/HCPCS: 36415; 49083; 85025; 85610; 85730; C1729

== ENCOUNTER → 2024-06-03 | Outpatient (REF) | payer MEDICARE, BC | LOC: US 12:10 | PROVIDERS: ATTEND Nurse Practitioner | DX: R18.8 Other ascites (principal) | CPT/HCPCS: 49083; C1729 ==

== ENCOUNTER → 2024-06-10 | Outpatient (REF) | payer MEDICARE, BC | LOC: US 14:06 | PROVIDERS: ATTEND Nurse Practitioner | DX: R18.8 Other ascites (principal); K74.60 Unspecified cirrhosis of liver | CPT/HCPCS: 49083 ==

== ENCOUNTER → 2024-06-17 | Outpatient (REF) | payer MEDICARE, BC ==
[~2024-06-17] MED LIST changes: +ALBUMIN 25% 12.5GM 50ML 100 ML IV ONE; -ALBUMIN 25% 12.5GM 50ML 150 ML IV ONE
== END ==
LOC: US 12:07
PROVIDERS: ATTEND Nurse Practitioner
DX: R18.8 Other ascites (principal); K74.60 Unspecified cirrhosis of liver
CPT/HCPCS: 49083

== ENCOUNTER → 2024-06-24 | Outpatient (REF) | payer MEDICARE, BC ==
[~2024-06-24] MED LIST changes: -ALBUMIN 25% 12.5GM 50ML 100 ML IV ONE; +ALBUMIN 25% 12.5GM 50ML 150 ML IV ONE
[2024-06-24 14:02] LABS: BASOPHILS # (AUTO) 0.1 (0.0-0.1); EOSINOPHILS # (AUTO) 0.1 (0.0-0.4); EOSINOPHILS % 1.4 % (0.0-6.0); HEMATOCRIT 41.3 % (38.2-49.6); HEMOGLOBIN 13.2 g/dL (14.0-18.0); LYMPHOCYTES # (AUTO) 0.6 (1.0-3.2); MEAN CORPUSCULAR VOLUME 90.8 fL (81-99); MONOCYTES # (AUTO) 0.4 (0.2-0.8); MONOCYTES % 7.1 % (4.4-11.3); NEUTROPHILS # (AUTO) 3.8 (2.1-6.9); NEUTROPHILS % 77.3 % (38.7-80.0); PLATELET COUNT 138 x10e3/uL (140-360); RED BLOOD COUNT 4.55 x10e6/uL (4.3-5.7); RED CELL DISTRIBUTION WIDTH 16.2 % (11.7-14.4); WHITE BLOOD COUNT 4.91 x10e3/uL (4.8-10.8)
[2024-06-24 14:17] LABS: INR 0.98; PROTHROMBIN TIME 13.6 seconds (11.9-14.5)
[2024-06-24 14:18] LABS: PARTIAL THROMBOPLASTIN TIME 37.7 seconds (23.8-35.5)
== END ==
LOC: US 13:39
PROVIDERS: ATTEND Nurse Practitioner
DX: R18.8 Other ascites (principal); K74.60 Unspecified cirrhosis of liver
CPT/HCPCS: 36415; 49083; 85025; 85610; 85730

== ENCOUNTER → 2024-07-01 | Outpatient (REF) | payer MEDICARE, BC ==
[~2024-07-01] MED LIST changes: +ALBUMIN 25% 12.5GM 50ML 100 ML IV ONE; -ALBUMIN 25% 12.5GM 50ML 150 ML IV ONE
== END ==
LOC: US 12:15
PROVIDERS: ATTEND Nurse Practitioner
DX: R18.8 Other ascites (principal); K74.60 Unspecified cirrhosis of liver
CPT/HCPCS: 49083

== ENCOUNTER → 2024-07-08 | Outpatient (REF) | payer MEDICARE, BC ==
[~2024-07-08] MED LIST changes: +ALBUMIN 25% 12.5GM 50ML 0 ML IV ONE; -ALBUMIN 25% 12.5GM 50ML 100 ML IV ONE
== END ==
LOC: US 12:10
PROVIDERS: ATTEND Nurse Practitioner
DX: R18.8 Other ascites (principal); K74.60 Unspecified cirrhosis of liver
CPT/HCPCS: 49083; C1729

== ENCOUNTER → 2024-07-15 | Outpatient (REF) | payer MEDICARE, BC ==
[~2024-07-15] MED LIST changes: -ALBUMIN 25% 12.5GM 50ML 0 ML IV ONE; +ALBUMIN 25% 12.5GM 50ML 150 ML IV ONE
== END ==
LOC: US 12:20
PROVIDERS: ATTEND Nurse Practitioner
DX: R18.8 Other ascites (principal); K74.60 Unspecified cirrhosis of liver
CPT/HCPCS: 49083; C1729

== ENCOUNTER → 2024-07-24 | Outpatient (REF) | payer MEDICARE, BC | LOC: US 12:10 | PROVIDERS: ATTEND Nurse Practitioner | DX: R18.8 Other ascites (principal); K74.60 Unspecified cirrhosis of liver | CPT/HCPCS: 49083 ==

== ENCOUNTER → 2024-07-29 | Outpatient (REF) | payer MEDICARE, BC ==
[~2024-07-29] MED LIST changes: +ALBUMIN 25% 12.5GM 50ML 0 ML IV ONE; -ALBUMIN 25% 12.5GM 50ML 150 ML IV ONE
[2024-07-29 12:37] LABS: EOSINOPHILS # (AUTO) 0.1 (0.0-0.4); EOSINOPHILS % 1.9 % (0.0-6.0); HEMATOCRIT 37.8 % (38.2-49.6); HEMOGLOBIN 12.3 g/dL (14.0-18.0); LYMPHOCYTES # (AUTO) 0.5 (1.0-3.2); LYMPHOCYTES % 12.2 % (18.0-39.1); MEAN CORPUSCULAR HGB CONC 32.5 g/dL (31-35); MEAN CORPUSCULAR VOLUME 89.2 fL (81-99); MONOCYTES # (AUTO) 0.3 (0.2-0.8); NEUTROPHILS # (AUTO) 3.2 (2.1-6.9); NEUTROPHILS % 76.7 % (38.7-80.0); PLATELET COUNT 127 x10e3/uL (140-360); RED BLOOD COUNT 4.24 x10e6/uL (4.3-5.7); RED CELL DISTRIBUTION WIDTH 15.9 % (11.7-14.4); WHITE BLOOD COUNT 4.11 x10e3/uL (4.8-10.8)
[2024-07-29 12:52] LABS: INR 0.97; PROTHROMBIN TIME 13.5 seconds (11.9-14.5)
[2024-07-29 12:53] LABS: PARTIAL THROMBOPLASTIN TIME 38.6 seconds (23.8-35.5)
== END ==
LOC: US 12:12
PROVIDERS: ATTEND Nurse Practitioner
DX: R18.8 Other ascites (principal); K74.60 Unspecified cirrhosis of liver
CPT/HCPCS: 36415; 49083; 85025; 85610; 85730; C1729

== ENCOUNTER → 2024-08-05 | Outpatient (REF) | payer MEDICARE, BC ==
[~2024-08-05] MED LIST changes: -ALBUMIN 25% 12.5GM 50ML 0 ML IV ONE; +ALBUMIN 25% 12.5GM 50ML 100 ML IV ONE
== END ==
LOC: US 12:19
PROVIDERS: ATTEND Nurse Practitioner
DX: R18.8 Other ascites (principal); K74.60 Unspecified cirrhosis of liver
CPT/HCPCS: 49083; C1729

== ENCOUNTER → 2024-08-12 | Outpatient (REF) | payer MEDICARE, BC ==
[~2024-08-12] MED LIST changes: +ALBUMIN 25% 12.5GM 50ML 0 ML IV ONE; -ALBUMIN 25% 12.5GM 50ML 100 ML IV ONE
== END ==
LOC: US 12:15
PROVIDERS: ATTEND Nurse Practitioner
DX: R18.8 Other ascites (principal); K74.60 Unspecified cirrhosis of liver
CPT/HCPCS: 49083

== ENCOUNTER → 2024-08-19 | Outpatient (REF) | payer MEDICARE, BC ==
[~2024-08-19] MED LIST changes: -ALBUMIN 25% 12.5GM 50ML 0 ML IV ONE; +ALBUMIN 25% 12.5GM 50ML 150 ML IV ONE
== END ==
LOC: US 12:07
PROVIDERS: ATTEND Nurse Practitioner
DX: R18.8 Other ascites (principal); K74.60 Unspecified cirrhosis of liver
CPT/HCPCS: 49083; C1729

== ENCOUNTER → 2024-08-26 | Outpatient (REF) | payer MEDICARE, BC ==
[~2024-08-26] MED LIST changes: +ALBUMIN 25% 12.5GM 50ML 0 ML IV ONE; -ALBUMIN 25% 12.5GM 50ML 150 ML IV ONE
[2024-08-26 13:46] LABS: BASOPHILS % 0.7 % (0.0-1.0); EOSINOPHILS # (AUTO) 0.1 (0.0-0.4); EOSINOPHILS % 1.5 % (0.0-6.0); HEMATOCRIT 37.5 % (38.2-49.6); HEMOGLOBIN 12.2 g/dL (14.0-18.0); LYMPHOCYTES # (AUTO) 0.6 (1.0-3.2); LYMPHOCYTES % 14.8 % (18.0-39.1); MEAN CORPUSCULAR HEMOGLOBIN 29.6 pg (28-32); MEAN CORPUSCULAR HGB CONC 32.5 g/dL (31-35); MONOCYTES # (AUTO) 0.4 (0.2-0.8); MONOCYTES % 10.2 % (4.4-11.3); NEUTROPHILS % 72.6 % (38.7-80.0); PLATELET COUNT 135 x10e3/uL (140-360); RED BLOOD COUNT 4.12 x10e6/uL (4.3-5.7); RED CELL DISTRIBUTION WIDTH 17.1 % (11.7-14.4); WHITE BLOOD COUNT 4.11 x10e3/uL (4.8-10.8)
[2024-08-26 13:50] LABS: INR 0.98; PROTHROMBIN TIME 13.6 seconds (11.9-14.5)
[2024-08-26 13:51] LABS: PARTIAL THROMBOPLASTIN TIME 38.8 seconds (23.8-35.5)
== END ==
LOC: US 13:02
PROVIDERS: ATTEND Nurse Practitioner
DX: R18.8 Other ascites (principal); K74.60 Unspecified cirrhosis of liver
CPT/HCPCS: 36415; 49083; 85025; 85610; 85730

== ENCOUNTER → 2024-09-02 | Outpatient (REF) | payer MEDICARE, BC ==
[~2024-09-02] MED LIST changes: -ALBUMIN 25% 12.5GM 50ML 0 ML IV ONE; +ALBUMIN 25% 12.5GM 50ML 100 ML IV ONE
== END ==
LOC: US 11:17
PROVIDERS: ATTEND Nurse Practitioner
DX: R18.8 Other ascites (principal); K74.60 Unspecified cirrhosis of liver
CPT/HCPCS: 49083

== ENCOUNTER → 2024-09-09 | Outpatient (REF) | payer MEDICARE, BC | LOC: US 12:15 | PROVIDERS: ATTEND Nurse Practitioner | DX: R18.8 Other ascites (principal); K74.60 Unspecified cirrhosis of liver | CPT/HCPCS: 49083 ==

== ENCOUNTER → 2024-09-30 | Outpatient (REF) | payer MEDICARE, BC ==
[~2024-09-30] MED LIST changes: +ALBUMIN 25% 12.5GM 50ML 0 ML IV ONE; -ALBUMIN 25% 12.5GM 50ML 100 ML IV ONE
[2024-09-30 10:49] LABS: BASOPHILS % 0.7 % (0.0-1.0); EOSINOPHILS # (AUTO) 0.1 (0.0-0.4); EOSINOPHILS % 1.7 % (0.0-6.0); HEMATOCRIT 35.6 % (38.2-49.6); HEMOGLOBIN 11.7 g/dL (14.0-18.0); LYMPHOCYTES # (AUTO) 0.5 (1.0-3.2); LYMPHOCYTES % 13.1 % (18.0-39.1); MEAN CORPUSCULAR HEMOGLOBIN 29.6 pg (28-32); MEAN CORPUSCULAR HGB CONC 32.9 g/dL (31-35); MEAN CORPUSCULAR VOLUME 90.1 fL (81-99); MONOCYTES # (AUTO) 0.4 (0.2-0.8); MONOCYTES % 10.4 % (4.4-11.3); NEUTROPHILS % 73.9 % (38.7-80.0); PLATELET COUNT 114 x10e3/uL (140-360); RED BLOOD COUNT 3.95 x10e6/uL (4.3-5.7); WHITE BLOOD COUNT 4.12 x10e3/uL (4.8-10.8)
[2024-09-30 11:53] LABS: ALBUMIN 3.2 g/dL (3.5-5.0); ALBUMIN/GLOBULIN RATIO 0.9 (0.8-2.0); ANION GAP 15.2 mmol/L (8-16); BILIRUBIN,TOTAL 0.7 mg/dL (0.2-1.2); CALCIUM 8.9 mg/dL (8.4-10.2); CREATININE, SERUM 3.53 mg/dL (0.72-1.25); POTASSIUM 4.2 mmol/L (3.5-5.1); TOTAL PROTEIN 6.8 g/dL (6.5-8.1)
[2024-09-30 11:59] LABS: INR 0.95; PROTHROMBIN TIME 13.5 seconds (11.9-14.5)
[2024-09-30 12:00] LABS: PARTIAL THROMBOPLASTIN TIME 42.6 seconds (23.8-35.5)
== END ==
LOC: US 10:05
PROVIDERS: ATTEND Nurse Practitioner
DX: R18.8 Other ascites (principal); K74.60 Unspecified cirrhosis of liver
CPT/HCPCS: 36415; 49083; 80053; 85025; 85610; 85730

== ENCOUNTER → 2024-10-07 | Outpatient (REF) | payer MEDICARE, BC ==
[~2024-10-07] MED LIST changes: -ALBUMIN 25% 12.5GM 50ML 0 ML IV ONE; +ALBUMIN 25% 12.5GM 50ML 100 ML IV ONE
== END ==
LOC: US 11:06
PROVIDERS: ATTEND Nurse Practitioner
DX: R18.8 Other ascites (principal); K74.60 Unspecified cirrhosis of liver
CPT/HCPCS: 49083

== ENCOUNTER → 2024-10-14 | Outpatient (REF) | payer MEDICARE, BC | LOC: US 09:08 | PROVIDERS: ATTEND Nurse Practitioner | DX: R18.8 Other ascites (principal); K74.60 Unspecified cirrhosis of liver | CPT/HCPCS: 49083; C1729 ==

== ENCOUNTER → 2024-10-23 | Outpatient (REF) | payer MEDICARE, BC ==
[~2024-10-23] MED LIST changes: -ALBUMIN 25% 12.5GM 50ML 100 ML IV ONE; +ALBUMIN 25% 12.5GM 50ML 150 ML IV ONE
== END ==
LOC: US 11:39
PROVIDERS: ATTEND Nurse Practitioner
DX: R18.8 Other ascites (principal); K74.60 Unspecified cirrhosis of liver
CPT/HCPCS: 49083

== ENCOUNTER → 2024-10-28 | Outpatient (REF) | payer MEDICARE, BC ==
[~2024-10-28] MED LIST changes: -ALBUMIN 25% 12.5GM 50ML 150 ML IV ONE
[2024-10-28 13:38] LABS: BASOPHILS % 0.8 % (0.0-1.0); EOSINOPHILS % 1.8 % (0.0-6.0); LYMPHOCYTES % 17.6 % (18.0-39.1); MONOCYTES % 8.8 % (4.4-11.3); NEUTROPHILS % 70.7 % (38.7-80.0); RED CELL DISTRIBUTION WIDTH 14.6 % (11.7-14.4)
[2024-10-28 13:56] LABS: INR 0.95
[2024-10-28 14:02] LABS: EST GLOMERULAR FILTRATION RATE 19.0 ML/MIN (>=60)
== END ==
LOC: US 13:09
PROVIDERS: ATTEND Nurse Practitioner
DX: R18.8 Other ascites (principal); K74.60 Unspecified cirrhosis of liver
CPT/HCPCS: 36415; 49083; 80048; 85025; 85610; 85730

== ENCOUNTER → 2024-11-04 | Outpatient (REF) | payer MEDICARE, BC ==
[~2024-11-04] MED LIST changes: +ALBUMIN 25% 12.5GM 50ML 150 ML IV ONE
[2024-11-04 13:58] LABS: BASOPHILS % 0.8 % (0.0-1.0); EOSINOPHILS % 1.6 % (0.0-6.0); LYMPHOCYTES % 17.6 % (18.0-39.1); MONOCYTES % 9.7 % (4.4-11.3); NEUTROPHILS % 70.0 % (38.7-80.0); RED CELL DISTRIBUTION WIDTH 14.5 % (11.7-14.4)
[2024-11-04 14:18] LABS: INR 0.93
== END ==
LOC: US 13:10
PROVIDERS: ATTEND Nurse Practitioner
DX: R18.8 Other ascites (principal); K74.60 Unspecified cirrhosis of liver
CPT/HCPCS: 36415; 49083; 85025; 85610; 85730; C1729

== ENCOUNTER → 2024-11-11 | Outpatient (REF) | payer MEDICARE, BC ==
[~2024-11-11] MED LIST changes: -ALBUMIN 25% 12.5GM 50ML 150 ML IV ONE
== END ==
LOC: US 09:18
PROVIDERS: ATTEND Nurse Practitioner
DX: R18.8 Other ascites (principal); K74.60 Unspecified cirrhosis of liver
CPT/HCPCS: 49083; C1729

== ENCOUNTER → 2024-11-18 | Outpatient (REF) | payer MEDICARE, BC ==
[~2024-11-18] MED LIST changes: +ALBUMIN 25% 12.5GM 50ML 100 ML IV ONE
== END ==
LOC: US 10:06
PROVIDERS: ATTEND Nurse Practitioner
DX: R18.8 Other ascites (principal); K74.60 Unspecified cirrhosis of liver
CPT/HCPCS: 49083; C1729

== ENCOUNTER → 2024-11-25 | Outpatient (REF) | payer MEDICARE, BC | LOC: US 10:02 | PROVIDERS: ATTEND Nurse Practitioner | DX: R18.8 Other ascites (principal); K74.60 Unspecified cirrhosis of liver | CPT/HCPCS: 49083 ==

== ENCOUNTER → 2024-12-02 | Outpatient (REF) | payer MEDICARE, BC ==
[~2024-12-02] MED LIST changes: -ALBUMIN 25% 12.5GM 50ML 100 ML IV ONE; +ALBUMIN 25% 12.5GM 50ML 50 ML IV ONE
[2024-12-02 10:43] LABS: BASOPHILS % 1.4 % (0.0-1.0); EOSINOPHILS % 1.9 % (0.0-6.0); LYMPHOCYTES % 14.9 % (18.0-39.1); MONOCYTES % 9.8 % (4.4-11.3); NEUTROPHILS % 72.0 % (38.7-80.0); RED CELL DISTRIBUTION WIDTH 14.2 % (11.7-14.4)
[2024-12-02 11:03] LABS: INR 0.95
[2024-12-02 12:54] LABS: EST GLOMERULAR FILTRATION RATE 58.0 ML/MIN (>=60)
== END ==
LOC: US 10:19
PROVIDERS: ATTEND Nurse Practitioner
DX: R18.8 Other ascites (principal)
CPT/HCPCS: 36415; 49083; 80053; 85025; 85610; 85730

== ENCOUNTER → 2024-12-09 | Outpatient (REF) | payer MEDICARE, BC ==
[~2024-12-09] MED LIST changes: -ALBUMIN 25% 12.5GM 50ML 50 ML IV ONE
== END ==
LOC: US 10:15
PROVIDERS: ATTEND Nurse Practitioner
DX: R18.8 Other ascites (principal); K74.60 Unspecified cirrhosis of liver
CPT/HCPCS: 49083

== ENCOUNTER → 2024-12-16 | Outpatient (REF) | payer MEDICARE, BC ==
[~2024-12-16] MED LIST changes: +ALBUMIN 25% 12.5GM 50ML 100 ML IV ONE
== END ==
LOC: US 10:21
PROVIDERS: ATTEND Nurse Practitioner
DX: R18.8 Other ascites (principal); K74.60 Unspecified cirrhosis of liver
CPT/HCPCS: 49083

== ENCOUNTER → 2024-12-23 | Outpatient (REF) | payer MEDICARE, BC ==
[~2024-12-23] MED LIST changes: -ALBUMIN 25% 12.5GM 50ML 100 ML IV ONE; +ALBUMIN 25% 12.5GM 50ML 50 ML IV ONE
[2024-12-23 11:15] LABS: BASOPHILS % 0.8 % (0.0-1.0); EOSINOPHILS % 1.6 % (0.0-6.0); LYMPHOCYTES % 13.6 % (18.0-39.1); MONOCYTES % 10.2 % (4.4-11.3); NEUTROPHILS % 73.5 % (38.7-80.0); RED CELL DISTRIBUTION WIDTH 14.7 % (11.7-14.4)
[2024-12-23 11:35] LABS: INR 0.96
== END ==
LOC: US 10:15
PROVIDERS: ATTEND Nurse Practitioner
DX: R18.8 Other ascites (principal); K74.60 Unspecified cirrhosis of liver
CPT/HCPCS: 36415; 49083; 85025; 85610; 85730

== ENCOUNTER → 2024-12-30 | Outpatient (REF) | payer MEDICARE, BC ==
[~2024-12-30] MED LIST changes: +ALBUMIN 25% 12.5GM 50ML 0 ML IV ONE; -ALBUMIN 25% 12.5GM 50ML 50 ML IV ONE
== END ==
LOC: US 10:08
PROVIDERS: ATTEND Nurse Practitioner
DX: R18.8 Other ascites (principal); K74.60 Unspecified cirrhosis of liver
CPT/HCPCS: 49083

== ENCOUNTER → 2025-01-06 | Outpatient (REF) | payer MEDICARE, BC ==
[~2025-01-06] MED LIST changes: -ALBUMIN 25% 12.5GM 50ML 0 ML IV ONE; +ALBUMIN 25% 12.5GM 50ML 100 ML IV ONE
[2025-01-06 11:05] LABS: BASOPHILS % 1.0 % (0.0-1.0); EOSINOPHILS % 1.2 % (0.0-6.0); LYMPHOCYTES % 13.5 % (18.0-39.1); MONOCYTES % 9.4 % (4.4-11.3); NEUTROPHILS % 74.7 % (38.7-80.0); RED CELL DISTRIBUTION WIDTH 14.5 % (11.7-14.4)
[2025-01-06 11:26] LABS: INR 0.97
== END ==
LOC: US 10:07
PROVIDERS: ATTEND Nurse Practitioner
DX: R18.8 Other ascites (principal); K74.60 Unspecified cirrhosis of liver
CPT/HCPCS: 36415; 49083; 85025; 85610; 85730

== ENCOUNTER → 2025-01-13 | Outpatient (REF) | payer MEDICARE, BC ==
[~2025-01-13] MED LIST changes: -ALBUMIN 25% 12.5GM 50ML 100 ML IV ONE; +ALBUMIN 25% 12.5GM 50ML 50 ML IV ONE
[2025-01-13 11:06] LABS: BASOPHILS % 0.2 % (0.0-1.0); EOSINOPHILS % 0.0 % (0.0-6.0); LYMPHOCYTES % 7.3 % (18.0-39.1); MONOCYTES % 4.5 % (4.4-11.3); NEUTROPHILS % 87.8 % (38.7-80.0); RED CELL DISTRIBUTION WIDTH 14.5 % (11.7-14.4)
[2025-01-13 11:26] LABS: INR 1.05
== END ==
LOC: US 10:11
PROVIDERS: ATTEND Nurse Practitioner
DX: R18.8 Other ascites (principal); K74.60 Unspecified cirrhosis of liver
CPT/HCPCS: 36415; 49083; 85025; 85610; 85730; C1729

== ENCOUNTER → 2025-01-20 | Outpatient (REF) | payer MEDICARE, BC ==
[~2025-01-20] MED LIST changes: +ALBUMIN 25% 12.5GM 50ML 150 ML IV ONE; -ALBUMIN 25% 12.5GM 50ML 50 ML IV ONE
== END ==
LOC: US 10:17
PROVIDERS: ATTEND Nurse Practitioner
DX: R18.8 Other ascites (principal); K74.60 Unspecified cirrhosis of liver
CPT/HCPCS: 49083

== ENCOUNTER → 2025-02-06 | Outpatient (REF) | payer MEDICARE, BC ==
[~2025-02-06] MED LIST changes: +ALBUMIN 25% 12.5GM 50ML 50 ML IV ONE
== END ==
LOC: US 10:30
PROVIDERS: ATTEND Nurse Practitioner
DX: R18.8 Other ascites (principal); K74.60 Unspecified cirrhosis of liver
CPT/HCPCS: 49083

== ENCOUNTER → 2025-02-10 | Outpatient (REF) | payer MEDICARE, BC ==
[~2025-02-10] MED LIST changes: +ALBUMIN 25% 12.5GM 50ML 100 ML IV ONE; -ALBUMIN 25% 12.5GM 50ML 150 ML IV ONE; -ALBUMIN 25% 12.5GM 50ML 50 ML IV ONE
[2025-02-10 10:49] LABS: BASOPHILS % 0.9 % (0.0-1.0); EOSINOPHILS % 1.5 % (0.0-6.0); LYMPHOCYTES % 15.9 % (18.0-39.1); MONOCYTES % 10.5 % (4.4-11.3); NEUTROPHILS % 70.9 % (38.7-80.0); RED CELL DISTRIBUTION WIDTH 17.4 % (11.7-14.4)
[2025-02-10 11:21] LABS: INR 1.0
== END ==
LOC: US 10:20
PROVIDERS: ATTEND Nurse Practitioner
DX: R18.8 Other ascites (principal); K74.60 Unspecified cirrhosis of liver
CPT/HCPCS: 36415; 49083; 85025; 85610; 85730

== ENCOUNTER → 2025-02-17 | Outpatient (REF) | payer MEDICARE, BC ==
[~2025-02-17] MED LIST changes: -ALBUMIN 25% 12.5GM 50ML 100 ML IV ONE
[2025-02-17 15:51] LABS: BODY FLUID APPEARANCE CLEAR; BODY FLUID COLOR YELLOW; BODY FLUID TYPE PERITONEAL; LYMPHOCYTES,BODY FLUID 27 %; MONO/MACROPHG,BODY FLUID 63 %; NEUTROPHILS,BODY FLUID 2 %; OTHER CELLS,BODY FLUID 8 %; TOTAL CELLS COUNTED (DIFF) 100
[2025-02-17 16:51] LABS: WBC,BODY FLUID 107 cells/uL
== END ==
LOC: US 10:13
PROVIDERS: ATTEND Nurse Practitioner
DX: R18.8 Other ascites (principal); K74.60 Unspecified cirrhosis of liver
CPT/HCPCS: 36415; 49083; 82040; 84157; 87070; 87205; 88112; 88305; 89051